=== PATIENT | female | born 1940 | race Two or more races ===

== ENCOUNTER 2016-06-22 02:03 | Emergency (ER) | payer MEDICARE ==
[~2016-06-22] VITALS: Ht 162.6 cm; Wt 61.7 kg
[2016-06-22] MEDS ORDERED: IV SET PRIMARY 1 EA INFUS.SET MC ONE (02:37)
[2016-06-22] MEDS ORDERED: ONDANSETRON HCL/PF 4 MG/2 ML VIAL ONE ×2 (02:37→02:50)
[2016-06-22] MEDS ORDERED: HYDROMORPHONE 1 MG/1 ML DISP.SYRIN ONE (02:37)
[2016-06-22] MEDS ORDERED: IV NS 0.9% 500 ML IV ONE ×2 (02:37→04:16)
[2016-06-22 02:46] LABS: BASOPHILS # (AUTO) 0.1 /CMM (0.0-0.2); BASOPHILS % (AUTO) 0.8 % (0.0-2.0); DIFF TOTAL % 100 %; EOSINOPHILS % (AUTO) 0.3 % (0.0-6.0); HEMATOCRIT 42 % (33-45); HEMOGLOBIN 14.2 g/dL (11.5-14.8); LYMPHOCYTES # (AUTO) 0.7 /CMM (0.8-4.8); LYMPHOCYTES % (AUTO) 7.3 % (20.0-44.0); MEAN CORPUSCULAR HEMOGLOBIN 31 PG (26.0-33.0); MEAN CORPUSCULAR HGB CONC 34 g/dl (31.0-36.0); MEAN CORPUSCULAR VOLUME 93 fL (82-100); MONOCYTES # (AUTO) 0.5 /CMM (0.1-1.30); MONOCYTES % (AUTO) 4.8 % (2.0-12.0); NEUTROPHILS # (AUTO) 8.9 /CMM (1.8-8.9); NEUTROPHILS % (AUTO) 86.8 % (43.0-81.0); PLATELET COUNT (AUTO) 229 /CMM (150-450); RED BLOOD CELL COUNT(AUTO) 4.54 MIL/uL (4.0-5.2); WHITE BLOOD COUNT (AUTO) 10.3 K/uL (4.3-11.0)
[2016-06-22] MEDS ORDERED: IV NS 0.9% 250 ML IV ONE (02:52)
[2016-06-22] MEDS ORDERED: IOHEXOL-300 100 ML VIAL IV ONE (02:52)
[2016-06-22] MEDS ORDERED: IV NS 0.9% 500 ML BAG IV ONE (03:00)
[2016-06-22] MEDS ORDERED: HYDROMORPHONE INJ 2 MG/ML DISP.SYRIN IV ONE (03:00)
[2016-06-22] MEDS ORDERED: ONDANSETRON HCL/PF 4 MG/2 ML VIAL IVP ONE (03:00)
[2016-06-22 03:01] LABS: ANION GAP 14 (5-14); CALCIUM, SERUM 8.6 mg/dL (8.5-10.1); CARBON DIOXIDE 27 mmol/L (21-32); CHLORIDE 101 mmol/L (98-107); CREATININE 0.7 mg/dL (0.6-1.3); GLUCOSE 159 mg/dL (74-106); POTASSIUM 3.5 mmol/L (3.5-5.1); SODIUM SERUM 138 mmol/L (136-145); UREA NITROGEN, BLOOD 13 mg/dL (7-18)
[2016-06-22 03:03] LABS: INR 0.95 (0.87-1.13); PROTHROMBIN TIME 10.3 SECS (9.5-12.7)
[2016-06-22 03:07] LABS: TROPONIN I < 0.017 ng/mL (0.00-0.056)
[2016-06-22 03:15] LABS: ALANINE AMINOTRANSFERASE 24 U/L (12-78); ALBUMIN 4.1 g/dL (3.4-5.0); ASPARTATE AMINOTRANSFERASE 13 U/L (15-37); BILIRUBIN,DIRECT 0.2 mg/dL (0.0-0.2); BILIRUBIN,TOTAL 1.3 mg/dL (0.2-1.0); INDIRECT BILIRUBIN 1.1 mg/dL (0.0-1.1); TOTAL PROTEIN, SERUM 7.2 g/dL (6.4-8.2)
[2016-06-22] MEDS ORDERED: ONDANSETRON HCL/PF 4 MG/2 ML VIAL IV ONE (03:30)
[2016-06-22] MEDS ORDERED: BELLADONNA /PHENOBARB 5 ML UDC 5 ML UDC ONE ×2 (04:27→04:36)
[2016-06-22] MEDS ORDERED: IV SET PRIMARY PUMP SET 1 EA INFUS.SET MC ONE (04:28)
[2016-06-22] MEDS ORDERED: Magnesium 1 GM/2 ML VIAL ONE (04:28)
[2016-06-22] MEDS ORDERED: Magnesium 1GM/D5W 100ML PREMIX 100 ML IV ONE (04:28)
[2016-06-22] MEDS ORDERED: IV D5/0.45 NACL 1,000 ML IV ONE (04:28)
[2016-06-22] MEDS ORDERED: BELLADONNA /PHENOBARB 5 ML UDC 5 ML UDC PO ONE (04:30)
[2016-06-22 04:41] LABS: KETONES,URINE NEGATIVE (NEGATIVE); LEUKOCYTE ESTERASE ,URINE NEGATIVE (NEGATIVE); PH,URINE 7.5 (5.0-8.0)
[2016-06-22 04:43] LABS: ADD UA MICROSCOPIC YES
[2016-06-22 04:44] LABS: ADD URINE CULTURE NO; WBC,URINE 0-2 /HPF (0-3)
[2016-06-22 06:00] VITALS: BP 129/64
== END 2016-06-22 05:35 | disposition home or self-care (01) ==
LOC: ER 02:05
DX: K56.41 Fecal impaction (principal); R10.84 Generalized abdominal pain; I10 Essential (primary) hypertension; N21.0 Calculus in bladder
CPT/HCPCS: 36415; 74160; 80048; 80076; 81001; 83690; 84484; 85025; 85730; 96374; 96375; 99285; A4606; J1170; J2405; J3475 ×2; J3490; J7040 ×2; J7050; Q9967; 81000-TC; Z7610